=== PATIENT | male | born 1980 | race Two or more races ===

== ENCOUNTER 2021-01-12 00:39 | Emergency (ER) | payer OTHER ==
[~2021-01-12] VITALS: Ht 175.3 cm; Wt 103.5 kg
[2021-01-12 00:41] VITALS: BP 148/84
--- NOTE | 2021-01-12 01:54 | NUR ---
REPORT FROM JAKE MOREIRA, PT CARE TRANSFERRED AT THIS TIME.
[2021-01-12] MEDS ORDERED: OMNIPAQUE 350 MG/ML, 100ML BOTTLE ONE (02:00)
--- NOTE | 2021-01-12 02:10 | NUR ---
PT IV ESTABLISHED FOR LAB DRAW AND CT, LABS SENT. PT NAD, DENIES ADDITIONAL QUESTIONS OR NEEDS, RESTING ON GURNEY, BED IN LOWEST, RAILS ENGAGED, MONITORING IN PLACE, WCTM.
[2021-01-12 02:52] LABS: BASOPHILS % (AUTO) 0 % (0-1); EOSINOPHILS % (AUTO) 1 % (1-7); LYMPHOCYTES % (AUTO) 13 % (22-44); MEAN CORPUSCULAR HEMOGLOBIN 30.3 pg (27.5-34.5); MEAN CORPUSCULAR HGB CONC 33.8 g/dL (33.2-36.2); MEAN PLATELET VOLUME 8.1 fL (7.4-10.4); MONOCYTES % (AUTO) 6 % (2-9); NEUTROPHILS % (AUTO) 80 % (42-75); PLATELET COUNT 292 x10^3/uL (130-400); RED BLOOD COUNT 4.76 x10^6/uL (4.38-5.82); RED CELL DISTRIBUTION WIDTH 12.7 % (9.4-14.8)
[2021-01-12 03:02] LABS: ALBUMIN 3.9 g/dL (3.4-5.0); ANION GAP 9 mmol/L (5-15); CHLORIDE 104 mmol/L (98-107); MICROSCOPIC INDICATED
[2021-01-12 03:06] LABS: ALANINE AMINOTRANSFERASE 31 U/L (12-78); ALKALINE PHOSPHATASE 102 U/L (45-117); BILIRUBIN,TOTAL 0.4 mg/dL (0.2-1.0); CREATININE 0.83 mg/dL (0.7-1.3); TOTAL PROTEIN 8.5 g/dL (6.4-8.2)
--- NOTE | 2021-01-12 03:11 | NUR ---
REPORT TO JAKE MOREIRA, PT CARE TRANSFERRRED AT THIS TIME.
[2021-01-12] MEDS ORDERED: ACETAMINOPHEN 325 MG TABLET ONE (03:22)
--- NOTE | 2021-01-12 03:24 | NUR ---
Pt in CT, will medicate with tylenol upon return.
[2021-01-12] MEDS ORDERED: ACETAMINOPHEN 325 MG TABLET PO ONE (03:30)
[2021-01-12] MEDS ORDERED: LIDOCAINE-MPF 1%, 5ML ONE (04:39)
[2021-01-12] MEDS ORDERED: LIDOCAINE 1%-EPI 1:100K, 20ML SQ ONE (05:00)
[2021-01-12] MEDS ORDERED: CEFTRIAXONE 1,000 MG in DEXTROSE 5% 50 ML IVPB ONE (05:00)
--- NOTE | 2021-01-12 05:08 | NUR ---
I/D done by Renetta baum, packed with iodoform and covered with 4/4. IV abx infusing. Pt to return to ER in 2 days for recheck.
== END 2021-01-12 06:24 | disposition home or self-care (01) ==
LOC: ED 06:02
DX: K61.0 Anal abscess (principal); K62.89 Other specified diseases of anus and rectum; D72.829 Elevated white blood cell count, unspecified; K59.00 Constipation, unspecified
CPT/HCPCS: 36415; 46050; 72193; 80053; 81001; 83605; 84145; 85025; 87040; 96374; 99285; J0696; Q9967

== ENCOUNTER 2021-01-14 10:19 | Emergency (ER) | payer OTHER ==
[~2021-01-14] VITALS: Ht 175.3 cm; Wt 102.4 kg
[2021-01-14 10:35] VITALS: BP 146/99
== END 2021-01-14 11:25 | disposition home or self-care (01) ==
LOC: ED 11:10
DX: Z48.01 Encounter for change or removal of surgical wound dressing (principal)
CPT/HCPCS: 99281